=== PATIENT | female | born 1955 | race Two or more races ===

== ENCOUNTER 2024-08-05 09:45 | Emergency (ER) | payer MEDICAID, OTHER ==
[~2024-08-05] VITALS: Ht 170.2 cm; Wt 113.6 kg
[2024-08-05 09:45] VITALS: BP 0/0; PULSE 0; RESP 0; O2SAT 0
== END 2024-08-05 09:58 ==
LOC: ER 09:45 → EDBD 09:45 → ER 09:58
DX: I46.9 Cardiac arrest, cause unspecified (principal); R06.89 Other abnormalities of breathing
CPT/HCPCS: 31500; 92950